=== PATIENT | female | born 1975 | race African-American/Black ===

== ENCOUNTER 2021-04-18 21:08 | Emergency (ER) | payer BC ==
[~2021-04-18] VITALS: Ht 170.2 cm; Wt 99.8 kg
[2021-04-18 21:08] VITALS: BP 128/89
--- NOTE | 2021-04-18 21:08 | NUR ---
TO LOBBY VIA W/C, A/W BED , PATIENT ALERT AWAKE , ORIENTED , AMBULATORY
[2021-04-18] MEDS ORDERED: NACL 0.9% 1,000 ML IV ONE (21:55)
[2021-04-18] MEDS ORDERED: INSULIN REGULAR, HUMAN 100 UNIT/ML VIAL IV ONE (21:55)
[2021-04-18 22:17] LABS: BASOPHILS # (AUTO) 0.1 K/uL (0.00-0.22); BASOPHILS % (AUTO) 1.3 % (0.0-2.0); EOSINOPHILS % (AUTO) 0.1 % (0.0-4.0); HEMATOCRIT 41.8 % (36-48); HEMOGLOBIN 14.3 g/dL (12.0-16.0); LYMPHOCYTES # (AUTO) 2.2 K/uL (2.5-16.5); MEAN CORPUSCULAR HEMOGLOBIN 30 pg (27-31); MEAN CORPUSCULAR HGB CONC 34 g/dL (33-37); MEAN CORPUSCULAR VOLUME 87.1 fL (80-94); MONOCYTES # (AUTO) 0.4 K/uL (0.8-1.0); MONOCYTES % (AUTO) 4.2 % (1.7-9.3); NEUTROPHILS # (AUTO) 7.6 K/uL (1.8-7.7); NEUTROPHILS % (AUTO) 73.4 % (42.2-75.2); PLATELET COUNT (AUTO) 296 K/uL (140-450); RED BLOOD CELL COUNT(AUTO) 4.81 MIL/uL (4.20-5.40); RED CELL DISTRIBUTION WIDTH 13.4 % (11.6-13.7); WHITE BLOOD COUNT (AUTO) 10.3 K/uL (4.8-10.8)
[2021-04-18 22:35] LABS: ANION GAP 18.4 (8-16); CARBON DIOXIDE 24.7 mmol/L (21-32); CREATININE 1.1 mg/dL (0.6-1.3); POTASSIUM 4.1 mmol/L (3.5-5.1); TOTAL BILIRUBIN 0.4 mg/dL (0.0-1.0)
[2021-04-19] MEDS ORDERED: METF-1243 PO (01:03)
[2021-04-19 01:08] VITALS: BP 125/72
--- NOTE | 2021-04-19 01:08 | NUR ---
Patient discharged with v/s stable. Written and verbal after care instructions given and explained. Patient alert, oriented and verbalized understanding of instructions. Ambulatory with steady gait. All questions addressed prior to discharge. ID band removed. Patient advised to follow up with PMD. Rx of METFORMIN given. Patient educated on indication of medication including possible reaction and side effects. Opportunity to ask questions provided and answered.
== END 2021-04-19 01:08 | disposition home or self-care (01) ==
LOC: MED 21:08
DX: E11.65 Type 2 diabetes mellitus with hyperglycemia (principal); R07.2 Precordial pain; Z90.710 Acquired absence of both cervix and uterus; Z98.890 Other specified postprocedural states; Z79.899 Other long term (current) drug therapy
CPT/HCPCS: 36415; 80053; 82009; 84484; 85025; 93005; 96361; 96374; 99284; J1815; J7030

== ENCOUNTER 2021-04-21 22:15 | Emergency (ER) | payer BC ==
[~2021-04-21] VITALS: Ht 170.2 cm; Wt 95.3 kg
[~2021-04-21 22:15] MED LIST: METF-1243 PO
[2021-04-21 22:28] VITALS: BP 117/64
--- NOTE | 2021-04-21 22:38 | NUR ---
patient to bed 12 ambulatory
[2021-04-21] MEDS ORDERED: NACL 0.9% 1,000 ML IV ONE (23:15)
[2021-04-21] MEDS ORDERED: INSULIN REGULAR, HUMAN 100 UNIT/ML VIAL IVP ONE (23:15)
--- NOTE | 2021-04-21 23:30 | NUR ---
received from triage, here for hyperg;ycemia. Pt known diabetic on oral hypoglyecemic. IV line started on left AC g20, blood collected and sent to lab. Urine pregtest done (-) result. NS 1L bolus started and 10 units of insulin regular given IVP.
[2021-04-22 00:13] LABS: BASOPHILS # (AUTO) 0.1 K/uL (0.00-0.22); BASOPHILS % (AUTO) 1.5 % (0.0-2.0); EOSINOPHILS # (AUTO) 0.1 K/uL (0-0.4); EOSINOPHILS % (AUTO) 1.2 % (0.0-4.0); HEMATOCRIT 37.8 % (36-48); HEMOGLOBIN 13.1 g/dL (12.0-16.0); LYMPHOCYTES # (AUTO) 3.2 K/uL (2.5-16.5); MEAN CORPUSCULAR HEMOGLOBIN 30 pg (27-31); MEAN CORPUSCULAR HGB CONC 35 g/dL (33-37); MONOCYTES # (AUTO) 0.3 K/uL (0.8-1.0); MONOCYTES % (AUTO) 3.5 % (1.7-9.3); NEUTROPHILS % (AUTO) 56.8 % (42.2-75.2); PLATELET COUNT (AUTO) 238 K/uL (140-450); RED BLOOD CELL COUNT(AUTO) 4.34 MIL/uL (4.20-5.40); RED CELL DISTRIBUTION WIDTH 13.7 % (11.6-13.7); WHITE BLOOD COUNT (AUTO) 8.7 K/uL (4.8-10.8)
[2021-04-22 01:04] LABS: ALBUMIN 3.5 g/dL (3.4-5.0); ANION GAP 13.8 (8-16); CHLORIDE 99 mmol/L (98-107); CREATININE 1.1 mg/dL (0.6-1.3); GFR ARICAN-AMERICAN 68 mL/min (>90); POTASSIUM 3.8 mmol/L (3.5-5.1); SODIUM SERUM 137 mmol/L (136-145); TOTAL BILIRUBIN 0.2 mg/dL (0.0-1.0); UREA NITROGEN, BLOOD 10 mg/dL (7-18)
[2021-04-22 01:12] LABS: GLUCOSE 420 mg/dL (74-106)
[2021-04-22 01:13] LABS: ACETONE, SERUM SMALL (NEGATIVE)
[2021-04-22] MEDS ORDERED: NACL 0.9% 1,000 ML IV ONE (01:20)
[2021-04-22] MEDS ORDERED: INSULIN REGULAR, HUMAN 100 UNIT/ML VIAL IVP ONE (01:20)
--- NOTE | 2021-04-22 02:15 | NUR ---
d/c with VSS. d/c education given. opportunity to ask questions given and answered. no rx given. IV site removed, bleeding controlled with sterile gauze and reinforced with tape.
[2021-04-22 02:38] LABS: ASPARTATE AMINOTRANSFERASE 8 U/L (15-37)
== END 2021-04-22 02:15 | disposition home or self-care (01) ==
LOC: MED 22:15
DX: E11.65 Type 2 diabetes mellitus with hyperglycemia (principal); Z79.899 Other long term (current) drug therapy; Z88.2 Allergy status to sulfonamides; Z90.710 Acquired absence of both cervix and uterus
CPT/HCPCS: 36415; 80053; 81002; 81025; 82009; 82948; 84703; 85025; 96361; 96374; 99283; J1815; J7030

== ENCOUNTER 2023-01-24 12:07 | Emergency (ER) | payer BC, OTHER ==
[~2023-01-24] VITALS: Ht 170.2 cm; Wt 88.5 kg
[2023-01-24 12:15] VITALS: BP 137/89; PULSE 75; RESP 15; O2SAT 100
[2023-01-24] MEDS ORDERED: KETOROLAC 30 MG/ML VIAL IM ONE (12:40)
[2023-01-24 13:13] LABS: BASOPHILS % (AUTO) 0.5 % (0.0-2.0); EOSINOPHILS % (AUTO) 0.4 % (0.0-4.0); HEMOGLOBIN 12.4 g/dL (12.0-16.0); LYMPHOCYTES # (AUTO) 2.4 K/uL (2.5-16.5); LYMPHOCYTES % (AUTO) 34.6 % (20.5-51.1); MEAN CORPUSCULAR HEMOGLOBIN 30 pg (27-31); MEAN CORPUSCULAR HGB CONC 34 g/dL (33-37); MEAN CORPUSCULAR VOLUME 88.4 fL (80-94); MONOCYTES # (AUTO) 0.4 K/uL (0.8-1.0); MONOCYTES % (AUTO) 5.1 % (1.7-9.3); NEUTROPHILS # (AUTO) 4.2 K/uL (1.8-7.7); NEUTROPHILS % (AUTO) 59.4 % (42.2-75.2); PLATELET COUNT (AUTO) 277 K/uL (140-450); RED BLOOD CELL COUNT(AUTO) 4.18 MIL/uL (4.20-5.40)
[2023-01-24] MEDS ORDERED: HYDROcodone/APAP 5/325 MG 1 TAB TAB PO ONE (13:35)
[2023-01-24] MEDS ORDERED: methocarbamoL 500 MG TAB PO ONE (13:35)
[2023-01-24] MEDS ORDERED: LIDOCAINE 5% 1 EA PATCH TP ONE (13:35)
[2023-01-24 13:57] LABS: ALANINE AMINOTRANSFERASE 13 U/L (12-78); ALBUMIN 3.3 g/dL (3.4-5.0); ALKALINE PHOSPHATASE 93 U/L (50-136); ANION GAP 14.3 (8-16); ASPARTATE AMINOTRANSFERASE 8 U/L (15-37); CARBON DIOXIDE 26.6 mmol/L (21-32); CHLORIDE 101 mmol/L (98-107); CREATININE 0.8 mg/dL (0.6-1.3); GFR ARICAN-AMERICAN 98 mL/min (>90); GFR NON ARICAN-AMERICAN 81 mL/min (>90); GLUCOSE 348 mg/dL (74-106); LIPASE 63 U/L (16-77); POTASSIUM 3.9 mmol/L (3.5-5.1); SODIUM SERUM 138 mmol/L (136-145); TOTAL BILIRUBIN 0.3 mg/dL (0.0-1.0); UREA NITROGEN, BLOOD 10 mg/dL (7-18)
[2023-01-24] MEDS ORDERED: METH-1681 PO (14:29)
[2023-01-24] MEDS ORDERED: LID5T TP (14:29)
[2023-01-24] MEDS ORDERED: ACET-8905 PO (14:29)
== END 2023-01-24 14:49 | disposition home or self-care (01) ==
LOC: MED 12:07
DX: M62.838 Other muscle spasm (principal); E11.9 Type 2 diabetes mellitus without complications; Z79.899 Other long term (current) drug therapy; Z88.2 Allergy status to sulfonamides
CPT/HCPCS: 36415; 71045; 80053; 82948; 83690; 84484; 85025; 93005; 96372; 99285; J1885

== ENCOUNTER 2023-01-25 02:18 | Emergency (ER) | payer SELFPAY ==
[~2023-01-25] VITALS: Ht 170.2 cm; Wt 89.4 kg
[~2023-01-25 02:18] MED LIST changes: +ACET-8905 PO; +LID5T TP; +METH-1681 PO
[2023-01-25 02:20] VITALS: BP 138/81; PULSE 92; RESP 18; TEMP 97.7; O2SAT 100
[2023-01-25] MEDS ORDERED: HYDROcodone/APAP 5/325 MG 1 TAB TAB PO ONE (03:40)
[2023-01-25] MEDS ORDERED: KETOROLAC 30 MG/ML VIAL IM ONE (03:40)
[2023-01-25 04:10] VITALS: BP 138/81; PULSE 92; RESP 18; TEMP 97.7; O2SAT 100
== END 2023-01-25 04:10 | disposition home or self-care (01) ==
LOC: MED 02:18
DX: S46.812A Strain of other muscles, fascia and tendons at shoulder and upper arm level, left arm, initial encounter (principal); M54.10 Radiculopathy, site unspecified; E11.9 Type 2 diabetes mellitus without complications; Z79.899 Other long term (current) drug therapy; Z88.2 Allergy status to sulfonamides; X58.XXXA Exposure to other specified factors, initial encounter; Y92.89 Other specified places as the place of occurrence of the external cause; Y93.89 Activity, other specified; Y99.8 Other external cause status
CPT/HCPCS: 73030; 73080; 73090; 73130; 99284; J1885